=== PATIENT | male | born 1945 | race Caucasian/White ===

== ENCOUNTER 2018-05-24 22:43 | Emergency (ER) | payer OTHER ==
[~2018-05-24] VITALS: Ht 175.3 cm; Wt 68.0 kg
--- NOTE | ~2018-05-24 | PATH ---
[facility] [place] [address] PATHOLOGY RPT PROCEDURE Name: SYEDA MONAHAN Room #: DEP YUMIKO Ferris#: [id number] Admission: 05/24/18 Date of : 41 Discharge: 05/25/18 Report #: [id number] Path Case #: [id number] LCA Accession Number: [id number] . 01 Material submitted: . BX OF ESOPHAGUS R/O EOSINOPHILIC ESOPHAGITIS . 01 Clinical history: . Food bolus R/O E.O.E. . 02 Diagnosis: Squamous mucosa, esophagus, endoscopic biopsy: - Mild active esophagitis associated with numerous intraepithelial eosinophils, up to 40/high-power field (please see comment). (IUV:jumbo operator; 05/28/2018) MBR/05/28/2018 . 02 Comment: Examination of the esophageal biopsy tissue shows squamous mucosa with a marked number of intraepithelial eosinophils. Although eosinophils are commonly encountered in inflammation due to reflux esophagitis, the eosinophils in the present specimen are numerous, exceeding 40/hpf. Apart from reflux esophagitis, potential etiologies for the histologic pattern include allergic and collagen vascular diseases, fungal or parasitic infections, and eosinophilic esophagitis (idiopathic). Please correlate with clinical and endoscopic findings. (IUV:jumbo operator; 05/28/2018) . 02 Electronically signed: . Melissa Cm MD, Pathologist NPI- [id number] . 01 Gross description: . Received in formalin labeled "Syeda Monahan, BX of esophagus to R/O E.O.E.," are four fragments of pale mir soft tissue measuring 0.8 x 0.5 x 0.1 cm in aggregate dimensions and ranging from 0.3 to 0.5 cm in maximum dimension. The specimen is submitted entirely in cassette A1. ([facility]; 05/27/2018) XDC/XDC . 02 Pathologist provided ICD-10: K20.9 . 02 CPT . 307364 Specimen Comment: A courtesy copy of this report has been sent to [place] [id number] PATHOLOGY RPT PROCEDURE Name: [facility]AN [facility] Room #: DEP [place]#: [id number] Admission: 05/24/18 Date of : 41 Discharge: 05/25/18 Report #: [id number] Path Case #: [id number] Specimen Comment: [phone], , . Specimen Comment: Report sent to ,DR HOWARD / DR JONES Specimen Comment: A duplicate report has been generated due to demographic updates. Performed at: [address], [place] [id number] MD Naldo Miller MD Phone: [phone] Performed at: [address] [id number] MD Melissa Cm MD Phone: [phone]
[~2018-05-24 22:43] MED LIST: AMBIEN 5 MG TABL5 M1 PO; BETAHISTINE5 GM MC; COLACE100 MG PO; FISH OIL 1,001000 M2 PO; FLOMAX0.4 MG PO; HYDROCODONE-AP1 EAC6 PO; LISINOPRIL10 MG PO; METAMUCIL PAC1 UDPKT PO; PEPCID20 MG PO; PREDNISONE10 MG PO; PROSCAR 5MG TABL5 MG PO
[2018-05-25 05:12] VITALS: BP 165/82
[2018-05-25] MEDS ORDERED: NEXIUM40 MG PO (15:38)
== END 2018-05-25 05:12 | disposition home or self-care (01) ==
LOC: ER 22:43
DX: T17.228A Food in pharynx causing other injury, initial encounter (principal); I10 Essential (primary) hypertension; K21.9 Gastro-esophageal reflux disease without esophagitis; X58.XXXA Exposure to other specified factors, initial encounter; Y93.89 Activity, other specified; Y92.89 Other specified places as the place of occurrence of the external cause; Y99.8 Other external cause status
CPT/HCPCS: 62110; 62900; 70005

== ENCOUNTER → 2018-09-09 | Outpatient (CLI) | payer OTHER ==
[~2018-09-09] VITALS: Ht 175.3 cm; Wt 65.8 kg
[~2018-09-09] MED LIST changes: +FISH OIL 1,4001 EACH PO; +NEXIUM40 MG PO; +XANAX 0.5 MG0.5 MG PO
--- NOTE | 2018-09-12 12:07 | PATH ---
[facility] [place] [address] PATHOLOGY RPT PROCEDURE Name: SYEDA MONAHAN Room #: REG [facility] M.Ruel.#: [id number] ������������������ Admission: 09/09/18 ������������������ Date of : 43 Discharge: Report #: [id number] Path Case #: [id number] LCA Accession Number: [id number] . 01 Material submitted: . PART A: ESOPHAGEAL BIOPSY PART B: GASTRIC POLYPS . 01 Clinical history: . Preop DX: Hx of EOE Postop DX: Gastric polyps . 02 Diagnosis: A. Squamous mucosa, esophagus, rule out eosinophilic esophagitis, endoscopic biopsy: - Mild esophagitis showing changes compatible with reflux esophagitis. - No increase in intraepithelial eosinophils. - Negative for intestinal metaplasia or dysplasia. . B. Polyps, gastric polyps, endoscopic biopsy: - Inflamed hyperplastic polyps / inflammatory polyps. - Reactive changes. - Negative for dysplasia. . (IUV:mml; 09/11/2018) QLM/09/11/2018 . 02 Comment: The Helicobacter pylori immunohistochemical stain is ordered on block B1 due to the findings. It is negative for the organism. Control stained appropriately. . (IUV:mml; 09/11/2018) . 02 Electronically signed: . Melissa Cm MD, Pathologist NPI- [id number] . 01 Gross description: . A. Received in formalin labeled "Syeda Monahan, esophageal BX," are multiple fragments of mir-brown soft tissue measuring 1.2 x 0.8 x 0.2 cm in aggregate dimensions and ranging from 0.1 to 0.4 cm in maximum dimension. The specimen is submitted entirely in cassette A1. . B. Received in formalin labeled "Syeda oMnahan, gastric polyps," are multiple segments of mir soft tissue measuring 2.3 x 0.9 x 0.2 cm in aggregate dimensions and ranging from 0.2 to 0.5 cm in maximum dimension. [address] [address] PATHOLOGY RPT PROCEDURE Name: SYEDA MONAHAN WALTER Room #: REG [facility].#: [id number] ������������������ Admission: 09/09/18 ������������������ Date of : 41 Discharge: Report #: [id number] Path Case #: [id number] The specimen is submitted entirely in cassette B1. (DAC; 09/10/2018) XDC/XDC . 02 Pathologist provided ICD-10: K21.0, K31.7 . 02 CPT . 228900, 523588, V04112 Specimen Comment: A courtesy copy of this report has been sent to Specimen Comment: [phone], . Specimen Comment: Report sent to / DR HOWARD Performed at: [address], [place], [place] [id number] MD Naldo Miller MD Phone: [phone] Performed at: [address] [id number] MD Melissa Cm MD Phone: [phone]
== END | disposition home or self-care (01) ==
LOC: GI 12:31
DX: K31.7 Polyp of stomach and duodenum (principal); K21.0 Gastro-esophageal reflux disease with esophagitis; K44.9 Diaphragmatic hernia without obstruction or gangrene; I10 Essential (primary) hypertension; N40.0 Benign prostatic hyperplasia without lower urinary tract symptoms; Z98.890 Other specified postprocedural states; Z87.891 Personal history of nicotine dependence; Z98.0 Intestinal bypass and anastomosis status; Z79.899 Other long term (current) drug therapy
CPT/HCPCS: 62110; 62900

== ENCOUNTER → 2020-05-04 | Outpatient (CLI) | payer OTHER | LOC: RAD 15:08 | PROVIDERS: ATTEND Nurse Practitioner | DX: M79.671 Pain in right foot (principal) ==

== ENCOUNTER 2021-03-05 18:28 | Inpatient (IN) | payer OTHER ==
[~2021-03-05] VITALS: Ht 175.3 cm; Wt 69.4 kg
--- NOTE | ~2021-03-05 | EMS ---
[facility] [address] [place] [address] EMS Patient Care Report Name: SYEDA MONAHAN Room #: 213-P [facility] IN M.R.#: [id number] Admission: 03/05/21 Attend Phys: Leodan Zapata MD Discharge: 03/08/21 Date of : 43 Report #: [id number] THIS REPORT FOR: //name// Report Transmitted: 03/09/2021 09:55 EMS Care Summary [place], [place]/[facility] Incident [id number] @ 03/05/2021 17:56 Incident Location [address] [place] [address] Patient SYEDA MONAHAN Male, 75 Years 1945 Patient Address [address] [place] [address] Patient History None Reported, Chief Complaint SYNCOPE Disposition Transported No Lights/[place] Dispatch Reason Unconscious/Fainting Transported To [facility] Narrative PUMPER 28/MEDIC 30 WERE DISPATCHED TO THE ADDRESS LISTED PREVIOUSLY IN THIS REPORT SOLEDAD AN UNCONSCIOUS PATIENT. UPON ARRIVAL, EMS OSBERVED ONE MALE PATIENT ALYING SUPINE ON THE GROUND. PATIENT WAS TRACKING EMS UPON APPROACH. PATIENT'S FAMILY INFORMED EMS THAT THE PATIENT HAD MULTIPLE SYNCOPAL EPISODES OF OVER THE LAST DAY PRIOR TO EMS ARRIVAL. PATIENT WAS THEN PLACED ON THE COT AND MOVED TO THE AMBULANCE WITHOUT INCIDENT. ONCE IN THE AMBULANCE, VITAL SIGN MONITORING CONTINUED. IV ACCESS WAS ESTABLISHED AND 12 LEAD EKG WAS OBTAINED. ONCE ENROUTE TO THE RECEIVING FACILITY, PATIENT WAS MOVED FROM THE AMBULANCE TO THE HOSPITAL [facility] [address] [place] [address] EMS Patient Care Report Name: SYEDA MONAHAN Room #: 213-P [facility] IN M.R.#: [id number] Admission: 03/05/21 Attend Phys: Leodan Zapata MD Discharge: 03/08/21 Date of : 43 Report #: [id number] COT WITHOUT INCIDENT. VERBAL REPORT WAS GIVEN TO THE PATIENT'S NURSE AND PATIENT CARE WAS TRANSFERRED. Initial Vitals @18:13P: 75,R: 16,GCS: 15,SpO2: 95,UT Suspected: false @18:04P: 87,R: 16,BP: 142/69,GCS: 15,CO: 0,SpO2: 94,Revised Trauma: 12, @18:05P: 92,R: 16,BP: 116/78,GCS: 15,SpO2: 95,Revised Trauma: 12, @18:08P: 79,R: 16,BP: 164/78,GCS: 15,CO: 0,SpO2: 96,Revised Trauma: 12, @18:03P: 86,R: 16,BP: 136/69,Pain: 0/10,GCS: 15,SpO2: 95,Revised Trauma: 12, Assessments @18:02MENTAL:Time Oriented,Event Oriented,Place Oriented,Person Oriented,SKIN:HEENT:LUNG SOUNDS:ABDOMEN:PELVIS//GI:EXTREMITIES:PULSE:Radial: 2+ Normal,NEURO: Impression Syncope / Fainting Procedures @18:11Saline Lock 10cc (18 ga) Site: Antecubital-LeftResponse: UnchangedSucceeded@18:1312-Lead ECGResponse: UnchangedSucceeded@18:02ALS AssessmentResponse: UnchangedSucceeded Timeline 17:54,Call Received 17:54,Dispatch Notified 17:56,Dispatched 17:56,En Route 18:00,On Scene 18:02,At Patient 18:02,ALS Assessment,Response: UnchangedSucceeded, 18:03,BP: 136/69 M,PULSE: 86,RR: 16 R,SPO2: 95 Ox,ETCO2: ,BG: ,PAIN: 0,GCS: 15, 18:04,BP: 142/69 M,PULSE: 87,RR: 16 R,SPO2: 94 Ox,ETCO2: ,BG: ,PAIN: ,GCS: 15, 18:05,BP: 116/78 M,PULSE: 92,RR: 16 R,SPO2: 95 Ox,ETCO2: ,BG: ,PAIN: ,GCS: 15, 18:08,BP: 164/78 M,PULSE: 79,RR: 16 R,SPO2: 96 Ox,ETCO2: ,BG: ,PAIN: ,GCS: 15, 18:11,Saline Lock 10cc 18 ga Site: Antecubital-Left,Response: UnchangedSucceeded, 18:13,12-Lead ECG,Response: UnchangedSucceeded, 18:13,BP: / M,PULSE: 75,RR: 16 R,SPO2: 95 Ox,ETCO2: ,BG: ,PAIN: ,GCS: 15, 18:18,Depart Scene 18:22,At Destination 18:35,Call Closed Disclaimer v1.1 Copyright 2020 [employer] This EMS Care Summary contains data elements from the applicable legal record [facility] [address] [place] [address] EMS Patient Care Report Name: SYEDA MONAHAN Room #: 213-P DIS IN M.R.#: [id number] Admission: 03/05/21 Attend Phys: Leodan Zapata MD Discharge: 03/08/21 Date of : 43 Report #: [id number] (which may be displayed differently). It is designed to provide pertinent information for the following purposes: continuity of care, clinical quality, and state data reporting. The complete legal record is available to ED staff and administrators of the receiving hospital in [facility]'s Patient Tracker. All data is provided "as is."
[2021-03-05 18:29] VITALS: BP 135/75
[2021-03-05 19:13] LABS: ABSOLUTE NEUTROPHILS 7.3 thou/uL (1.4-8.2); BASOPHILS 0.6 % (0.0-2.0); EOSINOPHILS 0.4 % (0.0-3.0); HEMATOCRIT 36.3 % (42.0-52.0); HEMOGLOBIN 12.5 gm/dL (14.0-18.0); LYMPHOCYTES 13.4 % (24.0-44.0); MCH 33.1 pg (26.0-34.0); MCHC 34.5 g/dL (28.0-37.0); MONOCYTES 8.7 % (1.0-8.0); PLATELET COUNT 181 thou/uL (150-400); POLYS 76.9 % (36.0-66.0); RBC 3.79 mil/uL (4.50-6.00); RDW 12.9 % (10.5-14.5); WBC 9.5 thou/uL (4.0-11.0)
[2021-03-05 19:20] LABS: CALCIUM 8.7 mg/dL (8.5-10.1); CREATININE 1.1 mg/dL (0.7-1.3); POTASSIUM 3.9 mmol/L (3.5-5.1)
[2021-03-05] MEDS ORDERED: ALPRAZOLAM 0.0.25 M1 PO (20:13)
[2021-03-05 20:37] LABS: URINE BILIRUBIN NEGATIVE (Negative); URINE BLOOD NEGATIVE (Negative); URINE CLARITY CLEAR; URINE COLOR YELLOW; URINE GLUCOSE-RANDOM* NEGATIVE (Negative); URINE KETONES NEGATIVE (Negative); URINE LEUKOCYTES-REFLEX NEGATIVE (Negative); URINE NITRITE-REFLEX NEGATIVE (Negative); URINE PROTEIN (DIPSTICK) NEGATIVE (Negative); URINE SPECIFIC GRAVITY <= 1.005 (1.005-1.035); URINE UROBILINOGEN 0.2 E.U./dl (0.2-1.0)
[2021-03-05 22:35] VITALS: BP 140/66
[2021-03-05 23:07] VITALS: BP 142/82; BP 148/81
[2021-03-05 23:08] VITALS: BP 141/75
[2021-03-06 02:24] VITALS: BP 132/75
--- NOTE | 2021-03-06 03:58 | NUR ---
ASSUMED CARE OF PT FROM ED AROUND 2250HRS. PT IS AOX4 AND WAS ORIENTED TO THE UNIT AND HIS ROOM. PT WAS ABLE TO ANSWER ALL ADMOSSION RELATED QUESTIONS AND SIGN CONSENTS. FALL PRECAUTION IN PLACE. ORDERS RECEIVED AND STARTED. PT IS EEK. PT DENIED PAIN, NAUSEA OR SOA. ORTHOSTATIC BP STABLE. PT WAS ABLE TO GET COMFORTABLE AND SLEEP PART OF THE SLEEP. VSS AND NO S/S OF ACUTE DISTRESS. WILL CONTINUE TO MONITOR.
[2021-03-06 05:36] LABS: HEMATOCRIT 32.9 % (42.0-52.0); HEMOGLOBIN 11.6 gm/dL (14.0-18.0); MCH 34.2 pg (26.0-34.0); MCHC 35.3 g/dL (28.0-37.0); MCV 96.9 fL (80.0-100.0); RBC 3.4 mil/uL (4.50-6.00); RDW 12.6 % (10.5-14.5); WBC 12.3 thou/uL (4.0-11.0)
[2021-03-06 05:39] LABS: CALCIUM 8.1 mg/dL (8.5-10.1); POTASSIUM 3.7 mmol/L (3.5-5.1)
[2021-03-06 08:19] VITALS: BP 123/70
[2021-03-06 16:09] VITALS: BP 131/48
--- NOTE | 2021-03-06 16:53 | NUR ---
ASSESSMENT ASCHARTED - MEDS PER AUG - ANASTASIA DIET AND FLUIDS. PT WITH NO CO'S OF NAUSEA. UP TO THE BATHROOM ANASTASIA WELL. IV FLUIDS CONTINUE ORDERED - FACE WITH BRUISING FROM FALL. FAMILY INTO VISIT TODAY. PT GIVEN TYLENOL FOR PAIN IN JAW THIS AM - WITH GOOD RELIEF - IVCE APPLIED TO JAW WHERE PATIENT STATED HURT WITH GOOD RELIEF. SEEN BY CARDIOLOGY THIS SHIFT - TO HAVE ECHO COMPLETED. NO CO'S AT THE PRESENT TIME/
[2021-03-06 19:37] VITALS: BP 133/63
[2021-03-06 23:54] VITALS: BP 118/61
[2021-03-07 04:11] VITALS: BP 116/59
--- NOTE | 2021-03-07 06:33 | NUR ---
Assumed pt's care beginning of this pm shift. ALert and oriented. VSS on RA. Pt's HR did go down to high 40's when pt was asleep. Pt requested to take his ambien at about 0200. Voiced to nursing, thats when he usually likes to sleep. Fall precaution in place. Call light within reach. Nursing to continue to monitor.
[2021-03-07 08:00] VITALS: BP 135/61; BP 142/63; BP 146/71
[2021-03-07 11:25] LABS: HEMATOCRIT 34.2 % (42.0-52.0); HEMOGLOBIN 11.9 gm/dL (14.0-18.0); MCH 33.7 pg (26.0-34.0); MCHC 34.8 g/dL (28.0-37.0); MCV 96.8 fL (80.0-100.0); RBC 3.53 mil/uL (4.50-6.00); RDW 12.6 % (10.5-14.5); WBC 9.5 thou/uL (4.0-11.0)
[2021-03-07 11:32] LABS: CREATININE 0.8 mg/dL (0.7-1.3); POTASSIUM 3.7 mmol/L (3.5-5.1)
--- NOTE | 2021-03-07 12:55 | 2DMMODE ---
[facility] [place] [address] [address] [place] [address] 2 D/M-MODE ECHOCARDIOGRAM Name: SYEDA MONAHAN Room #: 213-P ADM IN M.R.#: [id number] Admission: 03/05/21 Attend Phys: Leodan Zapata MD Discharge: Date of : 43 Report #: [id number] THIS REPORT FOR: cc: Fátima Mccoy DNP, Mary E. DNP Lammoglia, Francisco J. MD ~ APPROVED REPORT Study performed: 03/07/2021 10:03:40 EXAM: Comprehensive 2D, Doppler, and color-flow Echocardiogram Patient Location: Bedside Room #: 213 Status: on-call BSA: 1.82 HR: 60 bpm BP: 146/71 mmHg Rhythm: NSR Other Information Study Quality: Adequate Risk Factors: Cardiac Risk Factors: HTN, Smoking Indications Syncope 2D Dimensions IVSd: 9.26 (7-11mm) LVOT Diam: 21.00 (18-24mm) LVDd: 42.16 mm PWd: 8.90 (7-11mm) Ascending Ao: 32.65 (22-36mm) LVDs: 30.82 (25-40mm) Aortic Root: 32.19 mm LV Single Plane 4CH: 60.62 % LV Single Plane 2CH: 54.22 % Biplane EF: 57.4 % Volumes Left Atrial Volume (Systole) Single Plane 4CH: 63.10 mL Single Plane 2CH: 66.27 mL LA ESV Index: 38.00 mL/m2 LV Strain [facility] [address] [place] [address] 2 D/M-MODE ECHOCARDIOGRAM Name: SYEDA MONAHAN W[place]TER Room #: 213-P [facility] IN M.R.#: [id number] Admission: 03/05/21 Attend Phys: Leodan Zapata, Discharge: Date of : 43 Report #: [id number] GL Strain(%): 3.00 Aortic Valve AoV Peak Dakota.: 1.05 m/s AO Peak Gr.: 4.37 mmHg LVOT Max P.52 mmHg LVOT Max V: 0.94 m/s SAMIA Vmax: 3.14 cm2 Mitral Valve E/A Ratio: 1.1 MV Decel. Time: 325.24 ms MV E Max Dakota.: 0.56 m/s MV A [place].: 0.51 m/s MV PHT: 94.32 ms IVRT: 69.20 ms TDI E/Lateral E': 5.60 E/Medial E': 6.22 Medial E' Dakota.: 0.09 m/s Lateral E' [place].: 0.10 m/s Pulmonary Valve PV Peak [place].: 0.71 m/s PV Peak Gr.: 1.99 mmHg Pulmonary Vein P Vein S: 0.51 m/s P Vein A: 0.34 m/s P Vein D: 0.41 m/s P Vein A Dur.: 117.6 msec P Vein S/D Ratio: 1.24 Tricuspid Valve TR Peak [place].: 2.18 m/s RAP Estimate: 10.00 mmHg TR Peak Gr.: 19.02 mmHg PA Pressure: 29.00 mmHg Left Ventricle The left ventricle is normal size. There is normal LV segmental wall motion. There is normal left ventricular wall thickness. Left ventricular systolic function is normal. The left ventricular ejection fraction is within the normal range. LVEF is 55-60%. The left ventricular diastolic function is normal. Right Ventricle The right ventricle is normal size. The right ventricular systolic function is normal. [facility] [address] [place] [address] 2 D/M-MODE ECHOCARDIOGRAM Name: SYEDA MONAHAN Room #: [address] [place] [address] IN .R.#: [id number] Admission: 03/05/21 Attend Phys: Leodan Zapata, Discharge: Date of : 43 Report #: [id number] Left atrium is mildly dilated. Right atrium is mildly dilated. Aortic Valve The aortic valve is normal in structure. Mild aortic regurgitation. There is no aortic valvular stenosis. Mitral Valve The mitral valve is normal in structure. Trace to mild mitral regurgitation. No evidence of mitral valve stenosis. Tricuspid Valve The tricuspid valve is normal in structure. Trace tricuspid regurgitation. Pulmonary artery pressure is 29 mmHg. Pulmonic Valve The pulmonary valve is normal in structure. Trace pulmonic regurgitation. Great Vessels The aortic root is normal in size. The ascending aorta is normal in size. IVC is dilated and collapses >50% with inspiration. Pericardium There is no pericardial effusion. <Conclusion> The left ventricle is normal size. There is normal left ventricular wall thickness. There is normal LV segmental wall motion. LVEF is 55-60%. Left atrium is mildly dilated. Right atrium is mildly dilated. The aortic valve is normal in structure. Mild aortic regurgitation. The mitral valve is normal in structure. Trace to mild mitral regurgitation. The tricuspid valve is normal in structure. Trace tricuspid regurgitation. Pulmonary artery pressure is 29 mmHg. The pulmonary valve is normal in structure. [place] [address] 2 D/M-MODE ECHOCARDIOGRAM Name: SYEDA MONAHAN [facility] Room #: 213-P [facility] IN .R.#: [id number] Admission: 03/05/21 Attend Phys: Leodan Zapata, Discharge: Date of : 41 Report #: [id number] The aortic root is normal in size. There is no pericardial effusion. <ELECTRONICALLY SIGNED> By: Darshan Devine MD 03/07/21 1255 1255 1255 Darshan Devine MD /INF
[2021-03-07 16:00] VITALS: BP 138/75
--- NOTE | 2021-03-07 17:38 | NUR ---
ASSESSMENT CHARTED - MEDS PER AUG - NO CO'S OF PAIN OR NAUSEA. ANASTASIA DIET AND FLUIDS. UP TO THE BATHROOM - IN THE CHAIR. SEEN BY PHYS THERAPY THIS SHIFT -OCC THERAPY INTO SEE PATIENT. SEEN BY NEURO - CT OF SPINE TO BE DONE TODAY AND MRI/MRA OF HEAD TOMORROW - INFORMATION SHEET FAXED TO MRI. SEEN BY CARDIOLOGY - PT TO HAVE STRESS TEST. BRUISING TO PATIENT FACE / NOSE MORE PRONOUNCED TODAY. IV TO L AC INFILTRATED ICE APPLIED PT STATES FEELS MUCH BETTER - NEW IV PLACED TO L FA. NO CO'S AT THE PRESENT TIME.
[2021-03-07 19:33] VITALS: BP 139/62
--- NOTE | 2021-03-07 22:36 | HC ---
[facility] [place] [address] [place] [address] CONSULTATION Name: SYEDA MONAHAN Room #: 213-P ADM IN M.R.#: [id number] Admission: 03/05/21 Attend Phys: Leodan Zapata MD Discharge: Date of : 43 Report #: [id number] THIS REPORT FOR: cc: Fátima Mccoy DNP, Mary E. DNP Lammoglia, Francisco J. MD ~ DATE OF SERVICE: 03/06/2021 REASON FOR CONSULTATION: Syncope. HISTORY OF PRESENT ILLNESS: This is a very pleasant 75-year-old gentleman who was brought to the emergency room by friends after having a syncopal episode. Apparently, the patient has been having several episodes of syncope within the last 24-36 hours. This is something new to him. He has never had that before. He does have Meniere's disease and states this is completely different than Meniere's disease. He had a fall that he thought he broke his nose with visit a friend who is an emergency room nurse and during sitting on the porch having conversation, he passed out again. The nurse states that he had a pulse and it was steady, but he was not arousable. He denies orthopnea, PND. Denies any sensations of palpitations. No chest pain, pressure, tightness or heaviness previously. He does hydrate well otherwise. PAST MEDICAL HISTORY: 1. Hypertension. 2. Gastroesophageal reflux disease with prior episodes of GI bleeding. 3. Benign prostatic hypertrophy. 4. Meniere's disease. 5. Hard of hearing. 6. History of hematuria. 7. Colon mass, cell type etiology not available to me. PAST SURGICAL HISTORY: Significant for: 1. Inguinal hernia repair. 2. Oral surgery. 3. Sigmoid colon resection, which appears to have been from a benign process. 4. Right elbow surgery. 5. Left wrist fracture. 6. Right knee surgery. 7. Facial reconstruction. 8. Left hand fracture repair. FAMILY HISTORY: Negative for significant premature cardiovascular disease, arrhythmias or sudden cardiac . ALLERGIES: No known drug allergies. [facility] [address] [place] [address] CONSULTATION Name: SYEDA MONAHAN Room #: 213-P [facility] IN M.R.#: [id number] Admission: 03/05/21 Attend Phys: Leodan Zapata MD Discharge: Date of : 43 Report #: [id number] MEDICATIONS: At home are noted in the chart. LABORATORY DATA: Electrocardiogram; normal sinus rhythm, nonspecific ST-T wave changes. SOCIAL HISTORY: The patient smokes every day, consumes alcohol. Does not follow a particular exercise regimen or dietary restriction and does not use recreational drugs. REVIEW OF SYSTEMS: Except for symptoms previously mentioned and those commensurate with comorbid states a 10-point review of system is negative. PHYSICAL EXAMINATION: GENERAL: Well-developed, well-nourished male, resting comfortably in no acute distress. HEENT: Normocephalic, atraumatic. Pupils are equal, round, reactive to light and accommodation. Extraocular muscles are intact. Sclerae and conjunctivae are anicteric. NECK: JVD is normal. Carotid upstrokes are bilaterally symmetrical. No bruits are heard. No thyromegaly. No lymphadenopathy. LUNGS: Clear to auscultation. No wheezes, rhonchi or crackles. No CVA tenderness. CARDIAC: Demonstrates a regular rhythm. Normal first and second heart sounds. No ventricular or atrial gallops, no rubs noted. No murmurs. No lifts or heaves, PMI normal. ABDOMEN: Soft, nontender, nondistended. Normal bowel sounds. EXTREMITIES: Without cyanosis, clubbing or edema. Distal pulses are intact. DTR symmetrical. NEUROLOGIC: Cranial nerves 2-12 are grossly normal and symmetrical. PSYCHIATRIC: Alert, oriented with normal affect. SKIN: Warm and dry. IMPRESSION: 1. Syncope, etiology of which is uncertain. We will need to assess all aspects neurologic and cardiac from an arrhythmic standpoint. 2D echo Doppler will be obtained so that we can delineate any structural abnormalities, etc. We may want to proceed with stress testing later on if all other findings are negative. Carotid artery duplex should be performed since he has not been performed in the past. 2. Hypertension. We will monitor his blood pressures while hospitalized. We will continue to monitor that as an outpatient to make sure there are no significant issues from that standpoint. 3. Meniere's disease appears not to be an issue and this episode completely [address] [address] CONSULTATION Name: SYEDA MONAHAN Room #: 213-P ADM IN M.R.#: [id number] Admission: 03/05/21 Attend Phys: Leodan Zapata MD Discharge: Date of : 41 Report #: [id number] different than his usual episodes. 4. Gastroesophageal reflux disease, not an issue currently. <ELECTRONICALLY SIGNED> By: Darshan Devine MD 03/07/21 2236 1420 40 Darshan Devine MD /nt
[2021-03-08 04:11] VITALS: BP 109/47
[2021-03-08 04:25] LABS: HEMATOCRIT 32.9 % (42.0-52.0); HEMOGLOBIN 11.5 gm/dL (14.0-18.0); MCH 33.8 pg (26.0-34.0); MCHC 34.9 g/dL (28.0-37.0); RBC 3.39 mil/uL (4.50-6.00); RDW 12.3 % (10.5-14.5); WBC 9.3 thou/uL (4.0-11.0)
[2021-03-08 04:36] LABS: CALCIUM 7.7 mg/dL (8.5-10.1); CREATININE 0.8 mg/dL (0.7-1.3); POTASSIUM 3.5 mmol/L (3.5-5.1)
--- NOTE | 2021-03-08 05:03 | NUR ---
ASSUMED CARE OF PT AT 1900, ASSESSMENT COMPLETED NOTED. PT REQUEST AMBIEN TO BE GIVEN BETWEEN [phone]. NO COMPLAINTS OF PAIN, DIZZINESS OR HEADACHE. WILL CONTINUE TO WORK TOWARDS PT'S POC
--- NOTE | 2021-03-08 07:34 | EKG ---
[address] [address] ELECTROCARDIOGRAM REPORT Name: SYEDA MONAHAN Room #: 213-P ADM IN M.R.#: [id number] Admission: 03/05/21 Attend Phys: Leodan Zapata MD Discharge: Date of : 43 Report #: [id number] [facility] ED Test Date: 2021-03-05 Test Time: 18:35:18 Pat Name: SYEDA MONAHAN Department: Room: 213 Gender: M [employer]: loreto : 1945 Requested By: Jaydon Ortiz Order Number: [id number] MD: Dangelo Washington Measurements Intervals [place]arden Rate: 69 P: 68 CO: 172 QRS: 11 QRSD: 98 T: 44 QT: 406 QTc: 435 Interpretive Statements Sinus rhythm Borderline low voltage, extremity leads Compared to ECG 02/10/2016 11:49:09 Left-axis deviation no longer present Electronically Signed On 03-08-2021 7:34:40 CDT by Dangelo Washington [email or web address] <ELECTRONICALLY SIGNED> By: Dangelo Washington MD, [facility] 03/08/21 0734 34 34 Dangelo Washington MD, [facility] /EPI
[2021-03-08 08:00] VITALS: BP 144/70
[2021-03-08 16:00] VITALS: BP 123/72
--- NOTE | 2021-03-08 17:29 | NUR ---
Met with patient who admits with syncope. Sister at bedside. Patient resides at home alone. All needs on one level. No hx of DME. He cont to drive short distances. At dc plans to stay with sister for a few days. Therapy evals in process. [facility] following.
[2021-03-08 19:55] VITALS: BP 137/76
[2021-03-08 20:04] VITALS: BP 123/72
[2021-03-08] MEDS ORDERED: CEPHALEXIN500 MG PO (22:53)
--- NOTE | 2021-03-17 10:52 | HC ---
[facility] [place] [address] CONSULTATION Name: SYEDA MONAHAN Room #: 213-P [facility] IN M.R.#: [id number] Admission: 03/05/21 Attend Phys: Leodan Zapata MD Discharge: 03/08/21 Date of : 41 Report #: [id number] THIS REPORT FOR: cc: Fátima Mccoy DNP, Mary E. DNP Khosla, Parveen K. MD ~ DATE OF SERVICE: 03/07/2021 HISTORY OF PRESENT ILLNESS: This is a 75-year-old male patient who was admitted with multiple episodes of dizziness and syncope. He gives a history that his blood pressure used to run about 140-150 systolic. He does not know the exact timing, but more than a year ago, his doctor put him on lisinopril. He never checked his blood pressure again and started having what he described as flu-like symptoms. From first few episodes, he just did not feel right and he felt bad when he got off from the sitting position. During one episode, he got up, was feeling dizzy. PAST MEDICAL HISTORY: Negative for any stroke. FAMILY HISTORY: Unremarkable. SOCIAL HISTORY: He was pretty evasive about his alcohol intake and smoking. When I was taking this history, his sister walked in and he said he was a heavy smoker and heavy alcohol drinker. Then, he said he drinks beers every day. When I asked him, does he drink whiskey, he says yes, but he did not quantify, so my feeling is that he was probably drinking significant amount of alcohol. He has a pretty significant history of smoking in the past also. PHYSICAL EXAMINATION: Indicated, he is alert, he is responsive. He is very hard of hearing, but he cannot tell me what month it is. His speech is intact. His cranial nerve examination 2-12 looks mostly unremarkable. His strength, sensation, reflexes are symmetrical, but his reflexes are very difficult to elicit on either side. There is no meningeal sign. There is no carotid bruit. He did [id number] reasonably well. I could not look at the fundus. His cardiac examination is unremarkable. He has no edema, cyanosis or jaundice. His vision is adequate. There is no carotid bruit. No thyroid mass. His last blood pressure is 116/59, respirations 18, pulse is 57. LABORATORY DATA: His white count is 3.53. Last GFR was 94. When he came in, his GFR was 65. IMPRESSION: Most likely this patient's episode is non-neurological. It may be because of undiagnosed hypotension. It may be because of dehydration or vasovagal etiology, but these episodes are pretty persistent and I agree with cardiology that some workup is indicated neurologically even if the cause is unlikely. I discussed the situation with him. I discussed with his options [address] [place] [address] CONSULTATION Name: SYEDA MONAHAN Room #: 213-P DIS IN M.R.#: [id number] Admission: 03/05/21 Attend Phys: Leodan Zapata MD Discharge: 03/08/21 Date of : 41 Report #: [id number] with him. I will get an MRI done if the dental metal is not a contraindication and get an EEG done. If that is negative, that will exclude neurological cause any further. I discussed the pros and cons of this approach and other alternatives and he wants to proceed with it and we will set it up tomorrow. Thank you very much for this referral. <ELECTRONICALLY SIGNED> By: Mk Teague MD 03/17/21 1052 [id number] Mk Teague MD /nt
--- NOTE | 2021-03-17 10:53 | EEG ---
[facility] [place] [address] ELECTROENCEPHALOGRAM Name: SYEDA MONAHAN Room #: 213-P DIS IN M.R.#: [id number] Admission: 03/05/21 Attend Phys: Leodan Zapata MD Discharge: 03/08/21 Date of : 41 Report #: [id number] THIS REPORT FOR: //name// DATE OF SERVICE: 03/08/2021 This patient is being evaluated for syncope. EEG was done to evaluate that further. EEG was done by placing the electrode by standard 10-20 system of electrode placement. Both referential and sequential montages were used for recording. Background activity in this patient's EEG is about 9 Hz and 30 microvolt. The patient became drowsy that is associated with bilateral slowing. Photic stimulation is unremarkable. Throughout the record, no active epileptiform activity was noticed. IMPRESSION: This patient's EEG is unremarkable. Thank you very much for this referral. <ELECTRONICALLY SIGNED> By: Mk Teague MD 03/17/21 1053 [id number] Mk Teague MD /nt
== END 2021-03-08 20:58 | disposition home or self-care (01) | DRG 312 ==
LOC: ER 18:28 → EROBS 20:58 → 2N 20:58
PROVIDERS: Nurse Practitioner; Nurse Practitioner Family; Psychiatry & Neurology Neuromuscular Medicine; ADMIT Internal Medicine; ATTEND Internal Medicine
DX: I95.1 Orthostatic hypotension (principal); S02.2XXA Fracture of nasal bones, initial encounter for closed fracture; I10 Essential (primary) hypertension; N40.0 Benign prostatic hyperplasia without lower urinary tract symptoms; K21.9 Gastro-esophageal reflux disease without esophagitis; G47.00 Insomnia, unspecified; F51.05 Insomnia due to other mental disorder; F17.210 Nicotine dependence, cigarettes, uncomplicated; H81.09 Meniere's disease, unspecified ear; Z20.822 Contact with and (suspected) exposure to COVID-19; Z60.2 Problems related to living alone; X58.XXXA Exposure to other specified factors, initial encounter; Y93.89 Activity, other specified; Y92.89 Other specified places as the place of occurrence of the external cause; Y99.8 Other external cause status
CPT/HCPCS: 10081